=== PATIENT | female | born 1970 | race Caucasian/White ===

== ENCOUNTER → 2024-04-14 07:33 | Outpatient (REF) | payer BC, SELFPAY | LOC: WDC 07:33 | PROVIDERS: ATTENDING PHYSICIAN Obstetrics & Gynecology; FAMILY PHYSICIAN Nurse Practitioner Family | DX: Z12.31 Encounter for screening mammogram for malignant neoplasm of breast (principal) | CPT/HCPCS: 77063; 77067 ==

== ENCOUNTER 2024-08-30 15:57 | Emergency (ER) | payer BC, SELFPAY ==
[2024-08-30 16:01] VITALS: BP 128/94
--- NOTE | 2024-08-30 16:03 | ED.GENMED ---
ED Provider Triage
-
Patient seen by provider in Triage?: Seen in Triage
Attestation: A medical screening examination has been initiated by a qualified medical provider. Based on the assessment performed at this time, it has been determined that an emergent medical condition may exist and the patient has been informed
that further medical evaluation and possible additional diagnostic testing may be needed.
HPI: 54-year-old female presents upon referral from her JACKHAMMER OPERATOR for evaluation of heavy vaginal bleeding for the past month. The patient was prescribed TXA by her JACKHAMMER OPERATOR and has taken 3 doses thus far with no improvement. Has been soaking through greater
than 1 pad per hour. Denies fatigue, shortness of breath, or lightheadedness. Has no bleeding disorders.
GENERAL: Alert , in no apparent distress
EYE: No visual abnormalities.
NECK: Trachea midline
ENT: No visible abnormalities.
LUNGS: No acute respiratory distress
NEUROLOGICAL: Alert and oriented
SKIN: Skin intact. No visible changes.
MUSCULOSKELETAL: Moving extremities normally
PSYCH: Normal and appropriate interaction.
A/P: Will check basic labs and send for pelvic ultrasound given volume of bleeding
This is a medical evaluation conducted in person to initiate diagnostic evaluation and provide initial therapeutics. Please see further documentation by the treating clinician.
History of Present Illness
General
Chief Complaint: Vaginal Bleeding
Past History
Past History
ED Past Medical History: None
ED Past Surgical History: None
Social History
Tobacco: Non-smoker
Alcohol: None
Drug: None
Living: with family
Course
Orders/Labs/Results
Orders:
Orders
08/30/24 16:02
Complete Blood Count/With Diff Urgent
Comprehensive Metabolic Panel Urgent
US Pelvis Only (non-obstetric) Urgent
Comment:
Reason For Exam: menorrhagia
ED Attending Note
-
Portions of this chart may have been created with voice recognition software.� Occasional wrong word or��sound alike� substitutions may have occurred due to the inherent limitations of voice recognition software.
Discharge Plan
Departure
Prescriptions:
No Action
clindamycin HCl 300 MG capsule
300 mg PO Q6 Qty: 39 0RF
Discharge Date and Time
Print Language: NIUEAN
[2024-08-30 16:23] LABS: % Basophils 0.3 % (0-2); % Eosinophils 1.3 % (0-6); % Immature Granulocytes 0.3 % (0-0.5); % Lymphocytes 27.1 % (20.5-51.1); % Monocytes 10.3 % (1.7-9.3); % Neutrophils 60.7 % (42.2-75.2); Absolute Eosinophils 0.1 10^3/uL (0-0.7); Absolute Lymphocytes 1.7 10^3/uL (1.2-3.4); Absolute Monocytes 0.6 10^3/uL (0.1-0.6); Absolute Neutrophils 3.8 10^3/uL (1.4-6.5); Hematocrit 32.9 % (37.0-47.0); Hemoglobin 11.8 g/dL (12.0-16.0); Mean Corp Hgb Conc. 35.9 g/dL (33.0-37.0); Mean Corpuscular Hgb 28.6 pg (27.0-31.0); Mean Corpuscular Volume 79.7 fL (81.0-99.0); Mean Platelet Volume 9.5 fL (7.4-10.4); Nucleated Red Blood Cells % 0 %; Platelet Count 205 10^3/uL (130-400); Red Blood Cell Count 4.13 10^6/uL (4.20-5.40); White Blood Cell Count 6.2 10^3/uL (4.8-10.8)
[2024-08-30 16:38] LABS: ALT (SGPT) 16 U/L (0-35); AST (SGOT) 24 U/L (14-36); Albumin 4.1 g/dl (3.5-5.0); Alkaline Phosphatase 62 U/L (38-126); Blood Urea Nitrogen 11 mg/dl (7-17); Calcium 8.7 mg/dl (8.4-10.2); Carbon Dioxide 28 mmol/L (22-30); Chloride 103 mmol/L (98-107); Glucose 99 mg/dl (70-99); Sodium 140 mmol/L (135-145); Total Bilirubin 0.2 mg/dl (0.2-1.3); Total Protein 6.6 g/dl (6.3-8.2); eGFR > 60.00
[2024-08-30 18:03] VITALS: BP 127/73
--- NOTE | 2024-08-30 18:18 | ED.GENMED ---
ED Provider Triage
<Jose Madison PA-C - Last Filed: 08/31/24 10:14>
-
Patient seen by provider in Triage?: Seen in Triage
station: A medical screening examination has been initiated by a qualified medical provider. Based on the assessment performed at this time, it has been determined that an emergent medical condition may exist and the patient has been informed that
further medical evaluation and possible additional diagnostic testing may be needed.
HPI: 54-year-old female presents upon referral from her DATA CAPTURE SPECIALIST for evaluation of heavy vaginal bleeding for the past month. The patient was prescribed TXA by her DATA CAPTURE SPECIALIST and has taken 3 doses thus far with no improvement. Has been soaking through greater
than 1 pad per hour. Denies fatigue, shortness of breath, or lightheadedness. Has no bleeding disorders.
GENERAL: Alert , in no apparent distress
EYE: No visual abnormalities.
NECK: Trachea midline
ENT: No visible abnormalities.
LUNGS: No acute respiratory distress
NEUROLOGICAL: Alert and oriented
SKIN: Skin intact. No visible changes.
MUSCULOSKELETAL: Moving extremities normally
PSYCH: Normal and appropriate interaction.
A/P: Will check basic labs and send for pelvic ultrasound given volume of bleeding
This is a medical evaluation conducted in person to initiate diagnostic evaluation and provide initial therapeutics. Please see further documentation by the treating clinician.
History of Present Illness
<Mariya Smart NP - Last Filed: 08/31/24 15:43>
General
Chief Complaint: Vaginal Bleeding
Source: patient
Exam Limitations: none
Time Seen by Provider: 08/30/24 17:48
Nursing documentation reviewed up to this point in time: agreed with
History of Present Illness
History of Present Illness:
Patient to ED with heavy vaginal bleeding. States she her period starteded on Aug 22. 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 States bleeding became heavy and continues to worsent. She called her DATA CAPTURE SPECIALIST today and was
advised by staff to come to ED because the evaluation would be quicker. Brought self to ED. Changing pad hourly. Denies abdominal pain or cramping. States she has always had heavy periods. She had an IUD placed manyyears ago and this lessened
the amt of her bleeding. IUD was removed 18 mos ago and she reports increasing bleeding monthy. Last DATA CAPTURE SPECIALIST appt November.
Past History
<Mariya Smart NP - Last Filed: 08/31/24 15:43>
Past History
ED Past Medical History: None
ED Past Surgical History: Other (breast bx, D&E Uterine polyp,Csection)
Social History
Tobacco: Non-smoker
Alcohol: None
Drug: None
Living: with family
Review of Systems
<Mariya Smart NP - Last Filed: 08/31/24 15:43>
Review of Systems
Allergies reviewed?: Yes
All Other Systems: ROS reviewed and negative except as documented in HPI and ROS
Constitutional: Reports no symptoms
EENT: Reports no symptoms
Respiratory: Reports no symptoms
Cardiac: Reports no symptoms
ABD/GI: Reports no symptoms
: Reports bleeding (heavy vaginal bleeding)
Musculoskeletal: Reports no symptoms
Skin: Reports no symptoms
Neurological: Reports no symptoms
Psychiatric: Reports no symptoms
Phy Exam
<Mariya Smart NP - Last Filed: 08/31/24 15:43>
General Physical Exam
General Presentation: well appearing and no apparent distress
General age: appears stated age
General Skin: warm and dry
General Habitus: normal
Cardiovascular Exam
Cardiovascular Exam: regular rate/rhythm
Gastrointestinal Exam
Gastrointestinal Exam: normal bowel sounds, non tender, soft and no organomegaly
Genitourinary Exam Female
Exam Female: no CMT, no lesions, no mass and vaginal bleeding (Heavy vaginal bleeding, clots)
Vaginal Exam: blood
Vaginal Bleeding: clots and severe
Musculoskeletal Exam
Musculoskeletal Exam: full ROM and neuro vasc intact
Skin Exam
Skin Exam: normal color
Psychiatric Exam
Psychiatric Exam: normal mood/affect
Course
<Mariya Smart NP - Last Filed: 08/31/24 15:43>
Orders/Labs/Results
Orders:
Orders
08/30/24 16:02
US Pelvis W Transvag Combined Urgent
Reason For Exam: menorrhagia
08/30/24 16:12
Complete Blood Count/With Diff Urgent
Comprehensive Metabolic Panel Urgent
Abnormal Lab Results
08/30/24
16:12
RBC 4.13 L 10^6/uL
(4.20-5.40)
Hgb 11.8 L g/dL
(12.0-16.0)
Hct 32.9 L %
(37.0-47.0)
MCV 79.7 L fL
(81.0-99.0)
Monocytes % 10.3 H %
(1.7-9.3)
08/30/24 16:12
08/30/24 16:12
Vital Signs
Initial and Last Documented VS:
Initial Vital Signs
Temp Pulse Resp BP Pulse Ox
97.7 F 65 20 128/94 99
08/30/24 16:01 08/30/24 16:01 08/30/24 16:01 08/30/24 16:01 08/30/24 16:01
Last Documented Vital Signs
Temp Pulse Resp BP Pulse Ox
97.7 F 70 16 125/86 98
08/30/24 16:01 08/30/24 19:38 08/30/24 19:38 08/30/24 19:38 08/30/24 19:38
<oJse Madison PA-C - Last Filed: 08/31/24 10:14>
Orders/Labs/Results
Orders:
Orders
08/30/24 16:02
US Pelvis W Transvag Combined Urgent
Reason For Exam: menorrhagia
08/30/24 16:12
Complete Blood Count/With Diff Urgent
Comprehensive Metabolic Panel Urgent
Abnormal Lab Results
08/30/24
16:12
RBC 4.13 L 10^6/uL
(4.20-5.40)
Hgb 11.8 L g/dL
(12.0-16.0)
Hct 32.9 L %
(37.0-47.0)
MCV 79.7 L fL
(81.0-99.0)
Monocytes % 10.3 H %
(1.7-9.3)
08/30/24 16:12
08/30/24 16:12
Vital Signs
Initial and Last Documented VS:
Initial Vital Signs
Temp Pulse Resp BP Pulse Ox
97.7 F 65 20 128/94 99
08/30/24 16:01 08/30/24 16:01 08/30/24 16:01 08/30/24 16:01 08/30/24 16:01
Last Documented Vital Signs
Temp Pulse Resp BP Pulse Ox
97.7 F 70 16 125/86 98
08/30/24 16:01 08/30/24 19:38 08/30/24 19:38 08/30/24 19:38 08/30/24 19:38
<Mariya Smart NP - Last Filed: 08/31/24 15:43>
MDM/Problems Addressed
Differential Diagnosis Includes:
Differential diagnosis includes but not limited to: uterine polyps, uterine fibroids, neoplasia, dysplasia, trauma
MDM/Problems Addressed:
Patient to ED with complaint of worsing vaginal bleeding. Reports 1-2 pads/hr, passing clots. Labs reviewed Hgb stable. Afebrile. Has rx for TXA at home but has not been taking regularly. Discussed case with Dr. Tomas who saw patient bedside.
Patient to take TXA as orded tid for the next 5 days and then follow up with DATA CAPTURE SPECIALIST. Given instruction on s/s to return ED and she is agreeable to plan.
<Mariya Smart NP - Last Filed: 08/31/24 15:43>
*Radiology
Radiology exam reviewed: radiology read reviewed
*Pulse Oximetry
Patient hypoxic: no
<Jose Madison PA-C - Last Filed: 08/31/24 10:14>
*Critical Care Note
Total Time (30-74mins, 75-104mins- exclusive of procedures): Not Applicable
ED Attending Note
<Mariya Smart NP - Last Filed: 08/31/24 15:43>
-
Portions of this chart may have been created with voice recognition software.� Occasional wrong word or��sound alike� substitutions may have occurred due to the inherent limitations of voice recognition software.
Discharge Plan
Departure
Patient Disposition: Home (Routine Discharge)
Date of Disposition: 08/30/24
Time of Disposition: 19:30
Patient with high blood pressure during this ER visit?: No
Condition: Good
Covid-19: Not Applicable
Discharge Problem:
Abnormal vaginal bleeding
Instructions: Heavy Periods (DC)
Prescriptions:
No Action
clindamycin HCl 300 MG capsule
300 mg PO Q6 Qty: 39 0RF
Referrals:
Chilango Oates CRNP [Family Provider] -
Karrie Hilliard MD [Active] - Call in 1-3 days for appt
Activity Restrictions/Additional Instructions:
Take TXA three times daily as prescribed for the next 5 days. Follow up with DATA CAPTURE SPECIALIST. Return to the emergency department immediately for any changes in/worsening of your symptoms.
Interventions
Interventions:
*Risk Screen - Suicide Last Done: 08/30/24 16:01
*General Assessment Last Done: 08/30/24 19:41
*Neglect/Abuse Screening Last Done: 08/30/24 19:41
ED- Fall Risk Assessment Last Done: 08/30/24 19:41
*ED COVID-19 Vaccine History Last Done: 08/30/24 19:41
*Nursing Disposition Last Done: 08/30/24 19:41
ED-Female Genitourinary Assessment Last Done: 08/30/24 19:38
Discharge Date and Time
Discharge Date/Time: 08/30/24 19:42
Print Language: [place]
--- NOTE | 2024-08-30 19:31 | CON.MD ---
Consultation - Medical
-
Consult: abnormal uterine bleeding
HPI: Patient is a 54yo who presents to the ED with heavy vaginal bleeding. Patient reports she started bleeding about a month ago and it was about like a normal period. She has had daily bleeding, but most days are spotting or light
bleeding. On , she started having heavy bleeding soaking through pads and tampons. She has a history of heavy periods and had the Mirena IUD that was removed 18 months ago. While the IUD was in place she was amenorrheic. She is prescribed
Lysteda for her heavy periods. She took a dose on Thursday and a dose today. Today, she says the bleeding was heavier and had passage of large clots. She says the bleeding is heavier at night and she soaked through a pad, tampon, and towel. She denies
dizziness, lightheadedness, chest pain, or shortness of breath. Since she had the IUD removed, she has had irregular periods. She can't remember the last time she had a period before this, but thinks it was about 4 months ago.
ROS negative unless otherwise noted in the HPI.
OBHx:
SVDx2, CSx1, 20wk D&E, SAB
Gynhx: denies history of abnormal Pap
PMHx: denies
Meds: TXA
Surghx: CSx1, D&E, left breast biopsy (benign cyst removed), uterine cyst removed
All: sulfa, vancomycin
Socialhx: occasional etoh, denies tobacco or illicit drug use
Famhx: denies PUBLICATION DESIGNER cancers, maternal grandfather w/ hx of ID
O:
VSS BP 122/73, HR 59, RR 17, Temp 97.7, SpO2 100%
General: well appearing, no acute distress
Cardio: regular
Pulm: no increased work of breathing
performed by INFORMATICS NURSE SPECIALIST- reports pooling of blood with passage clots
Psych: appropriate affect
Labs: H/H 11.8/32.9
Pelvic US:
There are multiple small subendometrial cysts suggesting adenomyosis.
This finding may also be seen associated with tamoxifen therapy
The uterus is enlarged measuring 11.0 x 5.5 x 7.2 cm.
The uterus is anteverted.
There is thickening of the endometrial cavity echo complex which measures 2.2 cm. Which may be seen normally in a premenopausal patient, however, given the patient's clinical history, pathologic entities including endometrial hyperplasia,
endometritis and endometrial carcinoma are included in the differential diagnosis
There are no abnormal solid or complex adnexal masses.
There is 1.6 cm left ovarian cyst/follicle
There is normal flow to both ovaries
The right ovary measures 3.2 x 1.4 x 2.0 cm.
The left ovary measures 3.6 x 2.3 x 3.1 cm.
There is no free fluid in the pelvis.
A/P: 54yo with abnormal uterine bleeding
- Pelvic US reviewed- thickened endometrium and subendometrial cysts noted
- Patient is hemodynamically stable. VSS. H/H 11.8/32.9. Denies signs/symptoms of anemia.
- She is prescribed Lysteda to take TID for 5d as needed for heavy bleeding. She has taken one dose this morning and one dose on Thursday. Discussed with patient would recommend taking TID for 5 days total given acute episode of heavy bleeding. She
says she thinks she has enough Lysteda to last for 5 days, but will call the office if she does not
- Since patient is hemodynamically stable with no signs/symptoms of anemia, she is stable for discharge home. She was instructed to complete a 5d course of the Lysteda taking 2 tabs TID. If she has no improvement in the bleeding in the next couple
days, she is to call the office for further evaluation. She was instructed to follow up with the office within the next week or 2. She will likely need an EMB to rule out hyperplasia or endometrial carcinoma. Patient is aware. She is agreeable to
the plan
- Strict ED return precautions were given including dizziness, lightheadedness, chest pain, or shortness of breath. If she continues to soak through a pad per hour after a day or 2, she was also instructed to call the office or return to the ED.
20 minutes spent with patient, reviewing the chart, and documenting
[2024-08-30 19:38] VITALS: BP 125/86
== END 2024-08-30 19:42 | disposition home or self-care (01) ==
LOC: EMR 15:57
PROVIDERS: Physician Assistant; EMERGENCY PHYSICIAN Emergency Medicine; FAMILY PHYSICIAN Nurse Practitioner Family; OTHER PHYSICIAN Student in an Organized Health Care Education/Training Program
DX: N93.8 Other specified abnormal uterine and vaginal bleeding (principal)
CPT/HCPCS: 99284; 76830; 76856; 80053; 85025

== ENCOUNTER 2024-09-22 06:25 | Day surgery (SDC) | payer BC, SELFPAY ==
[2024-09-22] VITALS (22 sets, daily range): BP systolic 100–135; BP diastolic 56–88; BMI 23.3
[2024-09-22] MEDS: DILAUDID 0.5 MG IV (15:15)
[2024-09-22] MEDS: FERRLECIT 110 MG IV (18:10)
== END 2024-09-22 19:28 | disposition home or self-care (01) ==
LOC: SDS 06:25
PROVIDERS: ATTENDING PHYSICIAN Obstetrics & Gynecology
DX: N92.0 Excessive and frequent menstruation with regular cycle (principal)
CPT/HCPCS: 58558; 88305; 36430; 86850; 86900; 86901; 86920; J2916; P9016

== ENCOUNTER → 2025-04-18 07:30 | Outpatient (REF) | payer OTHER, SELFPAY | LOC: WDC 07:30 | PROVIDERS: ATTENDING PHYSICIAN Student in an Organized Health Care Education/Training Program; FAMILY PHYSICIAN Nurse Practitioner Family | DX: Z12.31 Encounter for screening mammogram for malignant neoplasm of breast (principal) | CPT/HCPCS: 77063; 77067 ==